=== PATIENT | male | born 1965 ===

== ENCOUNTER 2017-01-03 04:54 | Inpatient (IN) | payer OTHER ==
[2017-01-03 05:46] LABS: BASO # 0.1 K/uL (0.0-0.2); BASO % 0.9 % (0.0-2.0); EOS # 0.1 K/uL (0.0-0.7); EOS % 0.6 % (0.0-4.0); HEMATOCRIT 37.9 % (35.0-51.0); LYMPH # 2.2 K/uL (1.0-4.3); LYMPH % 19.2 % (20.0-40.0); MEAN CELL VOLUME 90.6 fL (80.0-94.0); MEAN CORPUSCULAR HEMOGLOBIN 29.6 pg (27.0-31.0); MEAN CORPUSCULAR HGB CONC 32.6 g/dL (33.0-37.0); MEAN PLATELET VOLUME 7.7 fL (7.2-11.7); MONO # 0.7 K/uL (0.0-0.8); MONO % 6.3 % (0.0-10.0); RED CELL DISTRIBUTION WIDTH 13.4 % (11.5-14.5); WHITE BLOOD COUNT 11.5 K/uL (4.8-10.8)
[2017-01-03] MEDS ORDERED: Sodium Chloride 0.9% 1,000 ML IV ONE (06:01)
[2017-01-03 06:13] LABS: CHLORIDE 98 mmol/L (98-107)
[2017-01-03 06:14] LABS: POTASSIUM 4.8 mmol/L (3.6-5.2); SODIUM 136 mmol/L (132-148)
[2017-01-03 06:16] LABS: ALB/GLOB RATIO 1.4 (1.0-2.1); AST/SGOT 24 U/L (17-59); BILIRUBIN,TOTAL 0.5 mg/dL (0.2-1.3); CARBON DIOXIDE 21 mmol/L (22-30); GFR AFRICAN-AMERICAN > 60; TOTAL PROTEIN 7.4 g/dL (6.3-8.3)
[2017-01-03 06:17] LABS: ALKALINE PHOSPHATASE 56 U/L (38-126); ALT/SGPT 41 U/L (21-72); BLOOD UREA NITROGEN 42 mg/dL (9-20); CALCIUM 9.1 mg/dl (8.6-10.4); GLUCOSE,RANDOM 248 mg/dL (75-110)
[2017-01-03 06:18] LABS: RBC URINE 1 /hpf (0-3); URINE BACTERIA RARE (<OCC); URINE BILIRUBIN NEGATIVE (NEGATIVE); URINE BLOOD NEGATIVE (NEGATIVE); URINE COLOR Yellow (YELLOW); URINE GLUCOSE (UA) 3+ mg/dL (Normal); URINE KETONE TRACE mg/dL (NEGATIVE); URINE LEUKOCYTE ESTERASE NEG Leu/uL (Negative); URINE PROTEIN NEGATIVE (NEGATIVE); URINE UROBILINOGEN NORMAL mg/dL (0.2-1.0); WBC URINE 1 /hpf (0-5)
--- NOTE | 2017-01-03 06:47 | C.PDOC ---
Time Seen by Provider: 01/03/17 05:31 Chief Complaint (Nursing): Dizziness/Lightheaded History Per: Patient Onset/Duration Of Symptoms: Hrs (Since last night) Current Symptoms Are (Timing): Still Present Number Of Bleeding Episodes: One Amount of Blood Loss: Medium Severity: Moderate Quality Of Discomfort: Unable To Describe Associated Symptoms: Melena, Lightheadedness Modifying Factors: Other Indicated Below Currently Taking: Aspirin Additional History Per: Prior Records Past Medical History Reviewed: Historical Data, Nursing Documentation, Vital Signs Vital Signs: Last Vital Signs Temp 98.7 F 01/03/17 05:12 Pulse 147 H 01/03/17 05:12 Resp 16 01/03/17 06:10 BP 117/86 01/03/17 05:12 Pulse Ox 100 01/03/17 06:47 - Medical History PMH: Diabetes, HTN, Hypercholesterolemia Surgical History: No Surg Hx Family History: States: Unknown Family Hx - Social History Hx Tobacco Use: No Hx Alcohol Use: No Hx Substance Use: No - Immunization History Hx Tetanus Toxoid Vaccination: No Hx Influenza Vaccination: No Hx Pneumococcal Vaccination: No Review Of Systems Except As Marked, All Systems Reviewed And Found Negative. Constitutional: Positive for: Chills (?), Malaise. Negative for: Fever Cardiovascular: Negative for: Chest Pain Respiratory: Positive for: SOB with Excertion. Negative for: Hemoptysis Gastrointestinal: Positive for: Melena. Negative for: Vomiting, Abdominal Pain , Diarrhea, Hematochezia, Hematemesis Genitourinary: Negative for: Dysuria Musculoskeletal: Negative for: Neck Pain Skin: Negative for: Rash Neurological: Negative for: Weakness, Numbness, Seizures, Altered Mental Status , Headache Physical Exam - Physical Exam Appears: In Acute Distress (mild) Skin: Warm, Dry Head: Atraumatic Eye(s): bilateral: PERRL, EOMI Neck: Normal ROM, Supple Cardiovascular: Rhythm Regular (tachycardic) Respiratory: Normal Breath Sounds, No Accessory Muscle Use Gastrointestinal/Abdominal: Soft, No Tenderness Rectal: Heme Positive, Melena Back: No CVA Tenderness Extremity: Normal ROM, No Pedal Edema, No Calf Tenderness Neurological/Psych: Oriented x3, Normal Motor, Normal Sensation ED Course And Treatment - Laboratory Results Result Diagrams: 01/03/17 05:41 01/03/17 05:41 ECG: Interpreted By Me, Viewed By Me ECG Rhythm: Sinus Tachycardia, Nonspecific Changes ECG Interpretation: Abnormal Rate From EC O2 Sat by Pulse Oximetry: 100 Pulse Ox Interpretation: Normal - Radiology CXR: Interpreted by Me, Viewed By Me CXR Interpretation: Yes: No Acute Disease Progress - Interventions Interventions:: Observation, Intravenous fluid - Medications Administered Intravenous: Other (Protonix) - Data Reviewed Data Reviewed: Lab, Diagnostic imaging, EKG, Old records - Patient Status Patient status: Unchanged - Critical Care Citical Care: Excluding Proc Time Critical Care Time: 45 minutes Disposition - Disposition Disposition Time: 06:53 Condition: SERIOUS - Clinical Impression Clinical Impression: Upper gastrointestinal hemorrhage, Tachycardia Physician Patient Turnover Patient Signed Over To: Maxi Cox DO Handoff Comments: to repeat CBC and dispo pt (Tele vs ICU).
[2017-01-03] MEDS ORDERED: Pantoprazole 80 MG in Sodium Chloride 0.9% 100 ML IVP STA (06:48)
[2017-01-03] MEDS ORDERED: Pantoprazole 80 MG in Sodium Chloride 0.9% 100 ML IV STA (07:42)
--- NOTE | 2017-01-03 09:15 | RAD ---
HISTORY: SOB COMPARISON: None available. TECHNIQUE: Chest, one view. FINDINGS: Examination limited by habitus and hypoinflation. LUNGS: No focal consolidation. Please note that chest x-ray has limited sensitivity for the detection of pulmonary masses. PLEURA: No significant pleural effusion identified. No definite pneumothorax . CARDIOVASCULAR: Cardiomegaly. OSSEOUS STRUCTURES: Degenerative changes. VISUALIZED UPPER ABDOMEN: Unremarkable. OTHER FINDINGS: None. IMPRESSION: Cardiomegaly.
[2017-01-03 09:43] LABS: BASO # 0.1 K/uL (0.0-0.2); BASO % 0.8 % (0.0-2.0); EOS # 0.1 K/uL (0.0-0.7); EOS % 0.6 % (0.0-4.0); HEMATOCRIT 34.2 % (35.0-51.0); LYMPH # 2.8 K/uL (1.0-4.3); LYMPH % 23.4 % (20.0-40.0); MEAN CELL VOLUME 90.1 fL (80.0-94.0); MEAN CORPUSCULAR HEMOGLOBIN 28.8 pg (27.0-31.0); MEAN PLATELET VOLUME 7.7 fL (7.2-11.7); MONO # 0.9 K/uL (0.0-0.8); MONO % 7.3 % (0.0-10.0); RED CELL DISTRIBUTION WIDTH 13.1 % (11.5-14.5); WHITE BLOOD COUNT 11.9 K/uL (4.8-10.8)
--- NOTE | 2017-01-03 12:10 | CP.PCM.HP ---
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 PMH ABOVE HAD RECENT STRESS TEST RESULT PENDING SOCIAL NON SMOKER NON ETOH Present on Admission - Present on Admission Any Indicators Present on Admission: No History of DVT/PE: No History of Uncontrolled Diabetes: No Urinary Catheter: No Decubitus Ulcer Present: No Review of Systems - Constitutional Constitutional: Chills, Weight Gain. absent: Excessive Sweating, Headache - EENT Eyes: absent: Other Visual Disturbances Ears: absent: Ear Discharge, Ear Pain Nose/Mouth/Throat: absent: Nasal Congestion, Mouth Pain, Sore Throat - Cardiovascular Cardiovascular: Dyspnea on Exertion, Palpitations. absent: Chest Pain - Respiratory Respiratory: Dyspnea, Dyspnea on Exertion. absent: Cough, Wheezing - Gastrointestinal Gastrointestinal: Melena. absent: Abdominal Pain, Change in Bowel Habits, Heartburn, Vomiting - Genitourinary Genitourinary: absent: Difficulty Urinating - Musculoskeletal Musculoskeletal: absent: Abnormal Gait, Limited Range of Motion, Stiffness - Integumentary Integumentary: absent: New Lesions, Rash, Skin Ulcer - Neurological Neurological: absent: Abnormal Gait, Abnormal Hearing, Abnormal Movements, Abnormal Speech, Behavioral Changes, Convulsions - Psychiatric Psychiatric: absent: Behavioral Changes, Confusion, Depression - Endocrine Endocrine: Fatigue - Hematologic/Lymphatic Hematologic: absent: Easy Bleeding, Easy Bruising Past Patient History - Past Social History Smoking Status: Former Smoker - CARDIAC Hx Hypercholesterolemia: Yes Hx Hypertension: Yes - ENDOCRINE/METABOLIC Hx Diabetes Mellitus Type 2: Yes - PSYCHIATRIC Hx Substance Use: No - SURGICAL HISTORY Hx Surgeries: No Meds Allergies/Adverse Reactions: Allergies Allergy/AdvReac Type Severity Reaction Status Date / Time No Known Allergies Allergy Verified 01/03/17 05:31 Physical Exam - Constitutional Appears: Non-toxic - Head Exam Head Exam: ATRAUMATIC, NORMOCEPHALIC - Eye Exam Eye Exam: Normal appearance. absent: Nystagmus - ENT Exam ENT Exam: Mucous Membranes Moist - Respiratory Exam Respiratory Exam: Clear to Auscultation Bilateral, NORMAL BREATHING PATTERN - Cardiovascular Exam Cardiovascular Exam: REGULAR RHYTHM - GI/Abdominal Exam GI & Abdominal Exam: Normal Bowel Sounds, Soft. absent: Distended, Tenderness - Rectal Exam Rectal Exam: Black Stool - Extremities Exam Extremities exam: Positive for: pedal pulses present. Negative for: joint swelling, pedal edema, tenderness - Back Exam Back exam: absent: rash noted, tenderness - Neurological Exam Neurological exam: Alert, Normal Gait, Oriented x3 - Psychiatric Exam Psychiatric exam: Normal Affect, Normal Mood - Skin Skin Exam: Intact, Normal Color Results - Vital Signs Recent Vital Signs: Last Vital Signs Temp 97.7 F 01/03/17 11:43 Pulse 116 H 01/03/17 11:43 Resp 18 01/03/17 11:43 BP 112/65 01/03/17 11:43 Pulse Ox 98 01/03/17 11:43 - Labs Result Diagrams: 01/03/17 09:37 01/03/17 05:41 Assessment & Plan - Assessment and Plan (Free Text) Assessment: PATIENT WITH DIABETES 2, CHILESTEROL ADMITTED FOR LGIB WITH DIZIINESS FURTHER EVALUATION- WILL CONSULT GI GI PROPHYLAXIS, NO MED DVT PROPHYLAXIS FOR NOW- WILL DO SCD HEART HEALTHY DIET WEIGHT ABNORMALITY, CHECK VQ SCAN TO RULE OUT PE
--- NOTE | 2017-01-03 12:47 | CP.PCM.CON ---
History of Present Illness - History of Present Illness History of Present Illness: Asked to see pt for Gi bleed. USOH until yesterday. [place] sudden weak and chills and had black stool x 2. Mild epig pain 1 week ago. Takes ASA 81 mg, but recently increased added dosed of 325 mg. Review of Systems - Constitutional Constitutional: Chills, Weakness. absent: Weight Loss - Cardiovascular Cardiovascular: absent: Chest Pain, Dyspnea - Respiratory Respiratory: absent: Cough, Dyspnea, Hemoptysis - Gastrointestinal Gastrointestinal: Abdominal Pain, Melena. absent: Constipation, Dysphagia, Hematemesis, Hematochezia, Vomiting - Genitourinary Genitourinary: absent: Dysuria, Hematuria - Musculoskeletal Musculoskeletal: absent: Muscle Cramps - Integumentary Integumentary: absent: Jaundice - Neurological Neurological: absent: Convulsions - Psychiatric Psychiatric: absent: Hallucinations Past Patient History - Past Social History Smoking Status: Former Smoker - CARDIAC Hx Hypercholesterolemia: Yes Hx Hypertension: Yes - ENDOCRINE/METABOLIC Hx Diabetes Mellitus Type 2: Yes - PSYCHIATRIC Hx Substance Use: No - SURGICAL HISTORY Hx Surgeries: No Meds Allergies/Adverse Reactions: Allergies Allergy/AdvReac Type Severity Reaction Status Date / Time No Known Allergies Allergy Verified 01/03/17 05:31 - Medications Medications: Current Medications Pantoprazole Sodium 80 mg/ (Sodium Chloride) 100 mls @ 10 mls/hr IV .Q10H [facility] PRN Reason: 8 MG/HR Stop: 01/03/17 17:41 Last Admin: 01/03/17 08:30 Dose: 10 mls/hr Lisinopril (Zestril) 5 mg PO DAILY [facility] Metformin HCl (Glucophage) 1,000 mg PO BIDCC [facility] Pantoprazole Sodium (Protonix Inj) 40 mg IVP DAILY [facility] Rosuvastatin Calcium (Crestor) 5 mg PO HS [facility] Physical Exam - Constitutional Appears: Well - Respiratory Exam Respiratory Exam: Clear to Auscultation Bilateral - Cardiovascular Exam Cardiovascular Exam: RRR - GI/Abdominal Exam GI & Abdominal Exam: Normal Bowel Sounds, Soft. absent: Guarding, Mass, Rebound , Tenderness - Extremities Exam Extremities exam: Negative for: calf tenderness - Back Exam Back exam: absent: CVA tenderness (L) - Neurological Exam Neurological exam: Alert, Oriented x3 Results - Vital Signs Recent Vital Signs: Last Vital Signs Temp 97.7 F 01/03/17 11:43 Pulse 116 H 01/03/17 11:43 Resp 18 01/03/17 11:43 BP 112/65 01/03/17 11:43 Pulse Ox 98 01/03/17 11:43 - Labs Result Diagrams: 01/03/17 09:37 01/03/17 05:41 Assessment & Plan (1) Tachycardia Assessment and Plan: GI bleed. Dehydration Status: Acute (2) Upper GI bleed Assessment and Plan: Melena: likely ulcer with aspirin intake. Consider AVM, MWT. Status: Acute (3) Diabetes mellitus Assessment and Plan: On meds Status: Acute (4) Hypertension Status: Acute (5) Dehydration Assessment and Plan: Elev BUN due to GI bleed and dehydration. Status: Acute
[2017-01-03] MEDS ORDERED: Propofol 10 mg/ml Inj (20 ML) ONE (13:09)
[2017-01-03] MEDS ORDERED: Sodium Chloride 0.9% 1,000 ML IV SCH (13:30)
--- NOTE | 2017-01-03 15:54 | NM ---
COMPARISON: January 03, 2017. Portable chest. TECHNIQUE: 8.9 mCi technetium 99-m Xe-133 Gas. 4.3 mCI technetium 99-m MAA administered intravenously. FINDINGS: VENTILATION COMPONENT: Mildly heterogeneous ventilation, retention of radionuclide on the washout phase compatible with lower airway disease. PERFUSION COMPONENT: Heterogeneous distribution of radionuclide. No geographic, segmental, lobar abnormalities apparent on the present examination. IMPRESSION: Andres probability ventilation perfusion scan for pulmonary embolism.
[2017-01-04 02:00] VITALS: RESP 20
[2017-01-04 06:33] LABS: HEMATOCRIT 27.2 % (35.0-51.0); MEAN CELL VOLUME 90.1 fL (80.0-94.0); MEAN CORPUSCULAR HEMOGLOBIN 30.5 pg (27.0-31.0); MEAN CORPUSCULAR HGB CONC 33.8 g/dL (33.0-37.0); MEAN PLATELET VOLUME 7.4 fL (7.2-11.7); RED CELL DISTRIBUTION WIDTH 13.3 % (11.5-14.5); WHITE BLOOD COUNT 7.1 K/uL (4.8-10.8)
[2017-01-04] MEDS ORDERED: Pantoprazole 80 MG in Sodium Chloride 0.9% 100 ML IV SCH (08:15)
--- NOTE | 2017-01-04 08:20 | CP.PCM.PN ---
Subjective - Date & Time of Evaluation Date of Evaluation: 01/04/17 Time of Evaluation: 08:00 - Subjective Subjective: F/U gi bleed Reports small amount of black stool. He reports feeling better. Denies abdom pain, CP, SOB, ROACH, cough, RB, hematemesis, hemoptysis Objective - Vital Signs/Intake and Output Vital Signs (last 24 hours): Temp Pulse Resp BP Pulse Ox 98.0 F 90 20 100/65 97 01/03/17 23:45 01/04/17 07:30 01/03/17 23:45 01/03/17 23:45 01/03/17 23:45 - Medications Medications: Current Medications Sodium Chloride (Sodium Chloride 0.9%) 1,000 mls @ 100 mls/hr IV .Q10H [facility] Pantoprazole Sodium 80 mg/ (Sodium Chloride) 100 mls @ 10 mls/hr IV .Q10H [facility] PRN Reason: 8 MG/HR Lisinopril (Zestril) 5 mg PO DAILY [facility] Metformin HCl (Glucophage) 1,000 mg PO BIDCC [facility] Last Admin: 01/03/17 17:16 Dose: 1,000 mg Pantoprazole Sodium (Protonix Inj) 40 mg IVP DAILY [facility] Rosuvastatin Calcium (Crestor) 5 mg PO HS [facility] Last Admin: 01/03/17 22:40 Dose: 5 mg - Labs Labs: 01/04/17 06:21 PT 11.7 SECONDS (9.7-12.2) 01/03/17 05:41 INR 1.0 01/03/17 05:41 APTT 25 SECONDS (21-34) 01/03/17 05:41 - Constitutional Appears: Well - Respiratory Exam Respiratory Exam: Clear to Ausculation Bilateral - Cardiovascular Exam Cardiovascular Exam: RRR - GI/Abdominal Exam GI & Abdominal Exam: Soft. absent: Tenderness - Neurological Exam Neurological Exam: Alert, Oriented x3 Assessment and Plan (1) Tachycardia Status: Acute (2) Upper GI bleed Assessment & Plan: DU. s/p therapeutic EGD. Dark stool is likely residual. Ddrop in Hb is likely dilutional. REC: protonix DRIP, check Hb. liquid diet. Repeat EGD 1 month Status: Acute (3) Diabetes mellitus Status: Acute (4) Hypertension Status: Acute (5) Dehydration Status: Acute
[2017-01-04 08:29] VITALS: PULSE 97
--- NOTE | 2017-01-04 11:49 | CARD ---
APPROVED REPORT EKG Measurement Heart [id number] <Conclusion> Sinus tachycardia Inferior infarct, age undetermined Anterior infarct, age undetermined Abnormal ECG
--- NOTE | 2017-01-04 14:14 | CP.PCM.DIS ---
Provider - Provider Date of Admission: 01/03/17 10:25 Attending physician: Julia Hernandez MD Time Spent in preparation of Discharge (in minutes): 30 Hospital Course - Lab Results Lab Results: Most Recent Lab Values WBC 7.1 K/uL (4.8-10.8) 01/04/17 06:21 RBC 3.02 Mil/uL (4.40-5.90) L 01/04/17 06:21 Hgb 9.2 g/dL (12.0-18.0) L 01/04/17 06:21 Hct 27.2 % (35.0-51.0) L 01/04/17 06:21 MCV 90.1 fL (80.0-94.0) 01/04/17 06:21 MCH 30.5 pg (27.0-31.0) 01/04/17 06:21 MCHC 33.8 g/dL (33.0-37.0) 01/04/17 06:21 RDW 13.3 % (11.5-14.5) 01/04/17 06:21 Plt Count 247 K/uL (130-400) 01/04/17 06:21 MPV 7.4 fL (7.2-11.7) 01/04/17 06:21 Neut % (Auto) 67.9 % (50.0-75.0) 01/03/17 09:37 Lymph % (Auto) 23.4 % (20.0-40.0) 01/03/17 09:37 Bee % (Auto) 7.3 % (0.0-10.0) 01/03/17 09:37 Eos % (Auto) 0.6 % (0.0-4.0) 01/03/17 09:37 Baso % (Auto) 0.8 % (0.0-2.0) 01/03/17 09:37 Neut # 8.1 K/uL (1.8-7.0) H 01/03/17 09:37 Lymph # 2.8 K/uL (1.0-4.3) 01/03/17 09:37 Bee # 0.9 K/uL (0.0-0.8) H 01/03/17 09:37 Eos # 0.1 K/uL (0.0-0.7) 01/03/17 09:37 Baso # 0.1 K/uL (0.0-0.2) 01/03/17 09:37 PT 11.7 SECONDS (9.7-12.2) 01/03/17 05:41 INR 1.0 01/03/17 05:41 APTT 25 SECONDS (21-34) 01/03/17 05:41 Sodium 136 mmol/L (132-148) 01/03/17 05:41 Potassium 4.8 mmol/L (3.6-5.2) 01/03/17 05:41 Chloride 98 mmol/L (98-107) 01/03/17 05:41 Carbon Dioxide 21 mmol/L (22-30) L 01/03/17 05:41 Anion Gap 22 (10-20) H 01/03/17 05:41 BUN 42 mg/dL (9-20) H 01/03/17 05:41 Creatinine 0.8 MG/DL (0.8-1.5) 01/03/17 05:41 Est GFR ( Amer) > 60 01/03/17 05:41 Est GFR (Non-Af Amer) > 60 01/03/17 05:41 POC Glucose (mg/dL) 138 mg/dL (65-110) H 01/04/17 11:15 Random Glucose 248 mg/dL (75-110) H 01/03/17 05:41 Hemoglobin A1c 7.9 % (4.2-6.5) H 01/03/17 21:32 Calcium 9.1 mg/dl (8.6-10.4) 01/03/17 05:41 Total Bilirubin 0.5 mg/dL (0.2-1.3) 01/03/17 05:41 AST 24 U/L (17-59) 01/03/17 05:41 ALT 41 U/L (21-72) 01/03/17 05:41 Alkaline Phosphatase 56 U/L (38-126) 01/03/17 05:41 Total Creatine Kinase 92 U/L (55-170) 01/03/17 05:41 CK-MB (Mass) 0.48 ng/mL (0.0-3.38) 01/03/17 05:41 Troponin I, Quant < 0.0120 ng/mL (0.00-0.120) 01/03/17 05:41 NT-Pro-B Natriuret Pep 24.2 pg/mL (0-900) 01/03/17 05:41 Total Protein 7.4 g/dL (6.3-8.3) 01/03/17 05:41 Albumin 4.3 g/dL (3.5-5.0) 01/03/17 05:41 Globulin 3.1 gm/dL (2.2-3.9) 01/03/17 05:41 Albumin/Globulin Ratio 1.4 (1.0-2.1) 01/03/17 05:41 Urine Color Yellow (YELLOW) 01/03/17 06:05 Urine Clarity Clear (Clear) 01/03/17 06:05 Urine pH 5.0 (5.0-8.0) 01/03/17 06:05 Ur Specific [place] 1.020 (1.003-1.030) 01/03/17 06:05 Urine Protein Negative mg/dL (NEGATIVE) 01/03/17 06:05 Urine Glucose (UA) 3+ mg/dL (Normal) H 01/03/17 06:05 Urine Ketones Trace mg/dL (NEGATIVE) 01/03/17 06:05 Urine Blood Negative (NEGATIVE) 01/03/17 06:05 Urine Nitrate Negative (NEGATIVE) 01/03/17 06:05 Urine Bilirubin Negative (NEGATIVE) 01/03/17 06:05 Urine Urobilinogen Normal mg/dL (0.2-1.0) 01/03/17 06:05 Ur Leukocyte Esterase Neg [place]/uL (Negative) 01/03/17 06:05 Urine WBC (Auto) 1 /hpf (0-5) 01/03/17 06:05 Urine RBC (Auto) 1 /hpf (0-3) 01/03/17 06:05 Urine Bacteria Rare (<OCC) 01/03/17 06:05 Urine Sperm (Auto) Rare /hpf (NONE) H 01/03/17 06:05 Stool Occult Blood Positive (NEGATIVE) H 01/03/17 06:13 Urine Opiates Screen Negative (NEGATIVE) 01/03/17 06:05 Urine Methadone Screen Negative (NEGATIVE) 01/03/17 06:05 Ur Barbiturates Screen Negative (NEGATIVE) 01/03/17 06:05 Ur Phencyclidine Scrn Negative (NEGATIVE) 01/03/17 06:05 Ur Amphetamines Screen Negative (NEGATIVE) 01/03/17 06:05 U Benzodiazepines Scrn Negative (NEGATIVE) 01/03/17 06:05 U Oth Cocaine Metabols Negative (NEGATIVE) 01/03/17 06:05 U Cannabinoids Screen Negative (NEGATIVE) 01/03/17 06:05 Influenza Typ A,B (EIA) Negative for flu a/b (NEGATIVE) 01/03/17 06:22 Blood Type A POSITIVE 01/03/17 06:28 Antibody Screen Negative 01/03/17 06:28 - Hospital Course Hospital Course: patient came to ER after an acute feeling of weakness dizziness - , and report black stoolin ER found to have drop in hemoglobin and with positive FOB- patient was scope- and revealed Duodenal ulcers- that was treated - patient has no other compkaints- and placed on PPI Discharge Exam - Head Exam Head Exam: ATRAUMATIC, NORMOCEPHALIC - Eye Exam Eye Exam: Normal appearance. absent: Nystagmus - ENT Exam ENT Exam: Mucous Membranes Moist - Neck Exam Neck exam: Full Rom - Respiratory Exam Respiratory Exam: Clear to PA & Lateral, NORMAL BREATHING PATTERN - Cardiovascular Exam Cardiovascular Exam: REGULAR RHYTHM - GI/Abdominal Exam GI & Abdominal Exam: Normal Bowel Sounds, Soft. absent: Tenderness - Neurological Exam Neurological exam: Alert, Normal Gait, Oriented x3 - Psychiatric Exam Psychiatric exam: Normal Affect, Normal Mood - Skin Skin Exam: Intact, Normal Color Discharge Plan - Follow Up Plan Condition: SERIOUS Disposition: HOME/ ROUTINE
--- NOTE | 2017-01-04 14:14 | CP.PCM.PN ---
Subjective - Date & Time of Evaluation Date of Evaluation: 01/04/17 Time of Evaluation: 08:35 - Subjective Subjective: patient seen, stable no bleeding, had scope yesterday Objective - Vital Signs/Intake and Output Vital Signs (last 24 hours): Temp Pulse Resp BP Pulse Ox 98.4 F 97 H 20 118/73 100 01/04/17 07:30 01/04/17 07:30 01/04/17 07:30 01/04/17 07:30 01/04/17 07:30 - Medications Medications: Current Medications Sodium Chloride (Sodium Chloride 0.9%) 1,000 mls @ 100 mls/hr IV .Q10H [facility] Pantoprazole Sodium 80 mg/ (Sodium Chloride) 100 mls @ 10 mls/hr IV .Q10H [facility] PRN Reason: 8 MG/HR Last Admin: 01/04/17 09:53 Dose: 10 mls/hr Lisinopril (Zestril) 5 mg PO DAILY [facility] Last Admin: 01/04/17 09:20 Dose: Not Given Metformin HCl (Glucophage) 1,000 mg PO BIDCC [facility] Last Admin: 01/04/17 08:00 Dose: Not Given Pantoprazole Sodium (Protonix Inj) 40 mg IVP DAILY [facility] Last Admin: 01/04/17 09:19 Dose: 40 mg Rosuvastatin Calcium (Crestor) 5 mg PO HS [facility] Last Admin: 01/03/17 22:40 Dose: 5 mg - Labs Labs: 01/04/17 06:21 PT 11.7 SECONDS (9.7-12.2) 01/03/17 05:41 INR 1.0 01/03/17 05:41 APTT 25 SECONDS (21-34) 01/03/17 05:41 - Constitutional Appears: Well, Non-toxic - Head Exam Head Exam: ATRAUMATIC, NORMOCEPHALIC - Eye Exam Eye Exam: Normal appearance. absent: Nystagmus - ENT Exam ENT Exam: Mucous Membranes Moist - Neck Exam Neck Exam: Full ROM - Respiratory Exam Respiratory Exam: Clear to Ausculation Bilateral, NORMAL BREATHING PATTERN - Cardiovascular Exam Cardiovascular Exam: REGULAR RHYTHM - Back Exam Back Exam: Full ROM. absent: tenderness - Neurological Exam Neurological Exam: Alert, Awake, Normal Gait, Oriented x3 - Psychiatric Exam Psychiatric exam: Normal Affect, Normal Mood - Skin Skin Exam: Intact, Normal Color Assessment and Plan - Assessment and Plan (Free Text) Assessment: Patient with GIB scoppe showed DUodenal ulcer with no active bleeding - educated off NSAIDS, to continue ppi Hypertension- continue meds will follow up in clinic next week
--- NOTE | 2017-01-04 15:05 | VASCLAB ---
PROCEDURE: Lower Extremity Venous Duplex Exam. HISTORY: Leg pain PRIORS: None. TECHNIQUE: Bilateral common femoral, femoral, popliteal and posterior tibial, peroneal and great saphenous veins were evaluated. Flow was assessed with color Doppler, compressibility, assessment of phasic flow and augmentation response. Report prepared by SABAS Mirza FINDINGS: RIGHT: 1. Common Femoral Vein: 1.1. Compressibility - Fully compressible: Thrombus - None : Flow - Phasic: Augmentation -Normal: Reflux - None. 2. Femoral Vein: 2.1. Compressibility - Fully compressible: Thrombus - None : Flow - Phasic: Augmentation -Normal: Reflux - None. 3. Popliteal Vein: 3.1. Compressibility - Fully compressible: Thrombus - None : Flow - Phasic: Augmentation -Normal: Reflux - None. 4. Posterior Tibial Vein: 4.1. Compressibility - Fully compressible: Thrombus - None: Flow - Phasic: Augmentation -Normal: Reflux - None. 5. Peroneal Vein: 5.1. Compressibility - Fully compressible: Thrombus - None: Flow - Phasic: Augmentation -Normal: Reflux - None. 6. Great Saphenous Vein: 6.1. Compressibility - Fully compressible: Thrombus - None: Flow - Phasic: Augmentation - Normal: Reflux - Mild 1.92seconds LEFT: 1. Common Femoral Vein: 1.1. Compressibility - Fully compressible: Thrombus - None: Flow - Phasic: Augmentation -Normal: Reflux - None. 2. Femoral Vein: 2.1. Compressibility - Fully compressible: Thrombus - None: Flow - Phasic: Augmentation -Normal: Reflux - None. 3. Popliteal Vein: 3.1. Compressibility - Fully compressible: Thrombus - None : Flow - Phasic: Augmentation -Normal: Reflux - None. 4. Posterior Tibial Vein: 4.1. Compressibility - Fully compressible: Thrombus - None: Flow - Phasic: Augmentation -Normal: Reflux - None. 5. Peroneal Vein: 5.1. Compressibility - Fully compressible: Thrombus - None: Flow - Phasic: Augmentation -Normal: Reflux - None. 6. Great Saphenous Vein: 6.1. Compressibility - Fully compressible: Thrombus - None: Flow - Phasic: Augmentation - Normal: Reflux - None. OTHER FINDINGS: Right: None significant. Left: None significant. IMPRESSION: Right: No evidence of deep or superficial vein thrombosis of the right lower extremity. Mild valvular incompetence of the right great saphenous vein. Left: No evidence of deep or superficial vein thrombosis of the left lower extremity. Normal valve function noted of the left side.
[2017-01-04 17:55] VITALS: BP 108/68; TEMP 98.1; O2SAT 96
== END 2017-01-04 19:00 | disposition home or self-care (01) | DRG 379 ==
LOC: C.ER 04:54 → C.9E 10:25 → C.9S 13:35 → C.6T 16:35
PROVIDERS: ADMIT Internal Medicine; ATTEND Internal Medicine
PROC: 0D598ZZ Destruction of Duodenum, Via Natural or Artificial Opening Endoscopic (ICD-10-PCS; principal; 2017-01-03 12:30)
DX: K26.4 Chronic or unspecified duodenal ulcer with hemorrhage (principal); I10 Essential (primary) hypertension; E11.9 Type 2 diabetes mellitus without complications; E78.00 Pure hypercholesterolemia, unspecified; R00.0 Tachycardia, unspecified; Z79.82 Long term (current) use of aspirin; Z87.891 Personal history of nicotine dependence; E86.0 Dehydration